=== PATIENT | female | born 1975 | race Caucasian/White ===

== ENCOUNTER → 2017-04-07 | Outpatient (CLI) | payer BC ==
[~2017-04-07] MED LIST: CLC150 PO; IBUP-1050 PO; LEVO75TA5 PO; SACC250C PO
== END | disposition home or self-care (01) ==
LOC: C.LABPBG 09:41
PROVIDERS: ATTEND Internal Medicine
DX: E03.9 Hypothyroidism, unspecified (principal)

== ENCOUNTER → 2017-11-20 | Outpatient (CLI) | payer BC | END | disposition home or self-care (01) | LOC: C.LABPBG 14:46 | PROVIDERS: ATTEND Internal Medicine | DX: E03.9 Hypothyroidism, unspecified (principal); F43.20 Adjustment disorder, unspecified ==